=== PATIENT | male | born 1950 | race Caucasian/White ===

== ENCOUNTER 2018-10-23 10:55 | Emergency (ER) | payer MEDICARE, BC ==
[2018-10-23] MEDS ORDERED: Lidocaine 1% 30 ML SDV INJECT ONE (11:11)
[2018-10-23 12:28] VITALS: BP 142/80
--- NOTE | 2018-10-23 15:38 | EDM.PDOC ---
ED HPI GENERAL MEDICAL PROBLEM - General Chief Complaint: Head Injury Stated Complaint: FELL, HURT SHOULDER AND HIP Time Seen by Provider: 10/23/18 11:05 Source of Information: Reports: Patient History Limitations: Reports: No Limitations - History of Present Illness INITIAL COMMENTS - FREE TEXT/NARRATIVE: Pt. states that he slipped on the ice while taking the garbage out. He states that he landed on his backside and L shoulder first them he stuck the back of his head on concrete. He recalls the entire event. He initially went to clinic who sent him to ER for evaluation. Pt. denies any neck pain. No nausea or vomiting. His primary complaint of that of superficial L buttocks pain, shoulder pain, and superficial scalp pain. No headache. Denies any difficulty with speech or ambulation. He has been alert for the entire event. He denies any use of anticoagulants. No numbness/tingling/weakness in extremities. Onset: Today Onset Date: 10/23/18 Location: Reports: Head, Upper Extremity, Left, Other (L buttocks) Occipital Pain Score (Numeric/FACES): 1 Left Shoulder Pain Score (Numeric/FACES): 2 Left Hip Pain Score (Numeric/FACES): 4 - Related Data Allergies Allergy/AdvReac Type Severity Reaction Status Date / Time No Known Allergies Allergy Verified 10/23/18 12:19 Home Meds: Home Meds Aspirin [Halfprin] 81 mg PO DAILY 09/22/15 [History] Ergocalciferol (Vitamin D2) [Vitamin D2] 1 cap PO ASDIRECTED 09/22/15 [History] Ferrous Sulfate [Slow Release Iron] 160 mg PO DAILY 09/22/15 [History] Finasteride [Proscar] 1 tab PO DAILY 09/22/15 [History] Hydrochlorothiazide 0.5 tab PO DAILY 09/22/15 [History] Lansoprazole [Prevacid] 15 mg PO QAM 09/22/15 [History] Sildenafil Citrate [Viagra] 100 mg PO DAILY PRN 09/22/15 [History] Tamsulosin [Flomax] 1 cap PO BEDTIME 09/22/15 [History] Past Medical History Cardiovascular History: Reports: High Cholesterol, Hypertension Respiratory History: Reports: None Gastrointestinal History: Reports: GERD, Hiatal Hernia Other Gastrointestinal History: fm hx colon ca Genitourinary History: Reports: BPH, Renal Calculus, Renal Disease Other Genitourinary History: ED Musculoskeletal History: Reports: None Neurological History: Reports: None Psychiatric History: Reports: None Endocrine/Metabolic History: Reports: Obesity/BMI 30+ Hematologic History: Reports: Anemia, Iron Deficiency Oncologic (Cancer) History: Reports: Renal Dermatologic History: Reports: None - Past Surgical History Head Surgeries/Procedures: Reports: None HEENT Surgical History: Reports: Tonsillectomy Social & Family History - Tobacco Use Smoking Status *Q: Unknown Ever Smoked - Alcohol Use Days Per Week of Alcohol Use: 2 Number of Drinks Per Day: 2 Total Drinks Per Week: 4 - Recreational Drug Use Recreational Drug Use: No ED ROS GENERAL - Review of Systems Review Of Systems: See Below Constitutional: Reports: No Symptoms HEENT: Reports: Other (see HPI). Denies: Vision Change Respiratory: Reports: No Symptoms Cardiovascular: Reports: No Symptoms Endocrine: Reports: No Symptoms GI/Abdominal: Reports: No Symptoms Musculoskeletal: Reports: Other (L buttock and shoulder pain) Skin: Reports: No Symptoms Neurological: Reports: No Symptoms Psychiatric: Reports: No Symptoms Hematologic/Lymphatic: Reports: No Symptoms Immunologic: Reports: No Symptoms ED EXAM, HEAD INJURY - Physical Exam Exam: See Below Exam Limited By: No Limitations General Appearance: Alert, WD/WN, No Apparent Distress Head: Scalp Lacerations, Scalp Swelling, Scalp Abrasions Nexus Criteria: No: Posterior, Midline Cervical Tenderness, Evidence of Intoxication, Altered Level of Consciousness, Focal Neurological Deficit, Painful Distraction Injuries Eyes: Bilateral Eye: EOMI, Normal Fundi, Normal Inspection, PERRL Ears: Normal External Exam, Normal Canal, Hearing Grossly Normal, Normal TMs Nose: Normal Inspection, Normal Mucousa Throat/Mouth: Normal Inspection, Normal Lips, Normal Teeth, Normal Gums, Normal Oropharynx, Normal Voice, No Airway Compromise Neck: Non-Tender, Full Range of Motion, Normal Alignment, Normal Inspection Respiratory: No Respiratory Distress, Lungs Clear, Normal Breath Sounds, No Accessory Muscle Use, Chest Non-Tender Cardiovascular: Normal Peripheral Pulses, Regular Rate, Rhythm, No Edema, No JVD , No Murmur GI/Abdominal Exam: Non-Tender Back Exam: Normal Inspection, Full Range of Motion Extremities: Normal Inspection, Normal Range of Motion, Other (tender to palpation of the L buttock. No deformity noted. No ecchymosis. He is able to ambulate without difficulty. ROM of the shoulder is normal. He has some pain of supraspinatus. 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 head was cleansed with chlorhexidine and saline. Abrasions and edema to occiput with 2 lacerations each measuring approx. 2 cm in length and another very superficial 2 cm laceration/abrasion adjacent to it. This top laceration was deeper and gaping. Using sterile technique, 3 skin binta was placed in this laceration and 2 were placed in the second more superficial lesion. Total length of both lacerations treated was 4 cm and a total of 5 binta was used. 6 ml. of 1% lidocaine was used to anesthetize both lacerations prior to repair. Course - Vital Signs Last Recorded V/S: Last Vital Signs Temp 36.4 C 10/23/18 10:55 Pulse 80 10/23/18 10:55 Resp 16 10/23/18 10:55 BP 142/80 H 10/23/18 10:55 Pulse Ox 92 L 10/23/18 10:55 - Orders/Labs/Meds Meds: Medications Discontinued Medications Generic Name Dose Route Start Last Admin Trade Name Vern PRN Reason Stop Dose Admin Lidocaine HCl 30 ml 10/23/18 11:11 10/23/18 11:16 Xylocaine-Mpf 1% INJECT 10/23/18 11:12 30 ml ONETIME ONE Administration Departure - Departure Time of Disposition: 11:40 Disposition: Home, Self-Care 01 Clinical Impression: Scalp laceration, Shoulder contusion, Acute buttock pain - Discharge Information Instructions: Head Injury, Adult, Contusion, Laceration Care, Adult, Hematoma, [id number] Referrals: Harvey Raphael MD [Primary Care Provider] - Forms: ED Department Discharge Additional Instructions: Ice painful areas for 10-15 min every 1-2 hours Return to ER if you have worsening headache, confusion, or vomiting. Binta out in 10 days. - Assessment/Plan Plan: Ice painful areas for 10-15 min every 1-2 hours Return to ER if you have worsening headache, confusion, or vomiting. Binta out in 10 days.
== END 2018-10-23 11:30 | disposition home or self-care (01) ==
LOC: VM.ED 10:55
DX: S01.01XA Laceration without foreign body of scalp, initial encounter (principal); S40.012A Contusion of left shoulder, initial encounter; M79.18 Myalgia, other site; I10 Essential (primary) hypertension; Z79.82 Long term (current) use of aspirin; Z79.899 Other long term (current) drug therapy; E66.9 Obesity, unspecified; W00.0XXA Fall on same level due to ice and snow, initial encounter
CPT/HCPCS: 12002; 99283; J2001

== ENCOUNTER 2023-06-26 07:01 | Day surgery (SDC) | payer MEDICARE, BC ==
[2023-06-26] MEDS: Lactated Ringers 1,000 ML IV SCH (07:23)
[2023-06-26] MEDS ORDERED: Propofol 200 MG/20 ML SDV ONE ×2 (08:43→08:54)
[2023-06-26 08:55] VITALS: PULSE 85
[2023-06-26] MEDS: fentaNYL 100 MCG/2 ML SDV ONE (09:05)
[2023-06-26] MEDS: Midazolam 1 MG/ML 2 ML SDV ONE (09:06)
[2023-06-26 09:10] VITALS: BP 148/76
== END 2023-06-26 09:48 | disposition home or self-care (01) ==
LOC: VM.SDS 07:01
PROVIDERS: ATTEND Family Medicine
DX: Z12.11 Encounter for screening for malignant neoplasm of colon (principal); K64.4 Residual hemorrhoidal skin tags; E11.22 Type 2 diabetes mellitus with diabetic chronic kidney disease; N18.2 Chronic kidney disease, stage 2 (mild); E11.69 Type 2 diabetes mellitus with other specified complication; E66.01 Morbid (severe) obesity due to excess calories; Z68.42 Body mass index [BMI] 45.0-49.9, adult; G47.33 Obstructive sleep apnea (adult) (pediatric); N40.1 Benign prostatic hyperplasia with lower urinary tract symptoms; Z80.0 Family history of malignant neoplasm of digestive organs; Z79.82 Long term (current) use of aspirin; Z79.84 Long term (current) use of oral hypoglycemic drugs; Z79.899 Other long term (current) drug therapy
CPT/HCPCS: 00811; 82947; J2250; J2704; J3010; J7120

== ENCOUNTER 2025-04-01 11:21 | Emergency (ER) | payer MEDICARE, BC ==
[2025-04-01 11:37] VITALS: BP 175/77; PULSE 84
== END 2025-04-01 11:56 | disposition home or self-care (01) ==
LOC: SUPCPDRO 11:21 → VM.ED 11:21
DX: M25.561 Pain in right knee (principal); G89.29 Other chronic pain; E78.00 Pure hypercholesterolemia, unspecified; I12.9 Hypertensive chronic kidney disease with stage 1 through stage 4 chronic kidney disease, or unspecified chronic kidney disease; N18.9 Chronic kidney disease, unspecified; E11.22 Type 2 diabetes mellitus with diabetic chronic kidney disease; K21.9 Gastro-esophageal reflux disease without esophagitis; Z79.82 Long term (current) use of aspirin; Z79.899 Other long term (current) drug therapy; Z79.85 Long-term (current) use of injectable non-insulin antidiabetic drugs
CPT/HCPCS: 99283